=== PATIENT | female | born 1995 | race Caucasian/White ===

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

== ENCOUNTER 2017-03-29 13:39 | Emergency (ER) | payer OTHER ==
[2017-03-29 13:48] VITALS: BP 130/72; PULSE 99; RESP 16; TEMP 97.5
--- NOTE | 2017-03-29 15:08 | ED ---
ENT HPI - General Chief complaint: ENT Stated complaint: ear infection Time Seen by Provider: 03/29/17 14:00 Source: patient, RN notes reviewed Mode of arrival: ambulatory Limitations: no limitations - History of Present Illness Initial comments: This is a 21-year-old female who presents to the emergency department with chief complaint of ear pain. Patient states that she's been experiencing ear pain since February 25, 2017. She was seen by her primary care physician who diagnosed her with an ear infection. She took a full course of amoxicillin that ended approximately 10 days ago. Patient denies any improvement in her symptoms. She then followed up with her primary care physician who told her the infection had resolved and prescribed her a Medrol Dosepak. Patient did not citrus picker her prescription as she was informed that it could cause changes in her mood and she is "borderline bipolar." Patient states that she is having difficulty hearing, describing it as feeling blood rushing in her ears. She denies any pain of the ears themselves, stating she is experiencing neck pain below her ears, but denies mastoid tenderness. Patient also complains of posterior neck pain as well as a sore throat. Patient states that it is not a normal sore throat but that "there is pain in the bone behind my throat." Patient denies any difficulty swallowing, pain with swallowing or difficulty breathing. She denies any systemic symptoms such as fever or chills, abdominal pain, nausea or vomiting, diarrhea or constipation. Patient states that her head feels full with forehead and facial pain. - Related Data Home Medications Medication Instructions Recorded Confirmed Isabloom ( Control) 1 tab PO DAILY 03/29/17 03/29/17 Pediatric Multivitamin No.30 2 tab PO DAILY 03/29/17 03/29/17 [Multivitamin Children's Gummies] Verapamil HCl [Verapamil ER] 120 mg PO DAILY 03/29/17 03/29/17 Vitamin B Complex 1 cap PO DAILY 03/29/17 03/29/17 Allergies Allergy/AdvReac Type Severity Reaction Status Date / Time No Known Allergies Allergy Verified 03/29/17 14:14 Review of Systems ROS Statement: Those systems with pertinent positive or pertinent negative responses have been documented in the HPI. ROS Other: All systems not noted in ROS Statement are negative. 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 HEENT: Head atraumatic, normocephalic. Pupils are equal, round and reactive to light. Extraocular movements intact. Oropharynx moist without erythema or exudate. Bilateral TMs are pearly without effusion. No mastoid tenderness bilaterally. Neck: Supple. Normal ROM. Tenderness on palpation occipital region posterior neck. Tenderness on palpation of superior aspect sternocleidomastoid muscle. No carotid bruits bilaterally. Cardiovascular: Regular rate and rhythm. No murmurs, rubs or gallops. Chest symmetrical. Respiratory: Lungs clear to auscultation bilaterally. No wheezes, rales or rhonchi. Normal respiratory effort with no use of accessory muscles. Musculoskeletal: Normal ROM, no tenderness bilateral upper and lower extremities. Ambulating normally. Skin: [place], warm and dry without rashes or lesions. Neurological: Alert and oriented x3. CN II-XII grossly intact. Speech is fluent and answers are appropriate. No focal neuro deficits. Psychiatric: Normal mood and affect. No overt signs of depression or anxiety noted. Limitations: no limitations Course Vital Signs 03/29/17 13:41 Temperature 97.5 F L Pulse Rate 99 Respiratory 16 Rate Blood Pressure 130/72 O2 Sat by Pulse 98 Oximetry Medical Decision Making - Medical Decision Making This is a 21-year-old female who presents to the emergency department with chief complaint of bilateral ear pain. Patient was recently treated for an inner ear infection with amoxicillin. She was prescribed a Medrol Dosepak by her primary care provider most likely for eustachian tube effusion. On physical examination, patient denies any mastoid tenderness. Bilateral TMs are pearly with out effusion. This case was discussed with attending physician, Dr. Delgado who also evaluated the patient. He recommended follow-up with her primary care provider and referral to ENT for further evaluation and management. Patient is to citrus picker her prescription of Medrol Dosepak and take that. Patient is in agreement with plan and voices understanding. She is in no acute distress at this time. She will be discharged home. All questions were answered. Disposition Clinical Impression: Otalgia of both ears, Tenderness of neck Disposition: HOME SELF-CARE Condition: Poor Instructions: Earache (ED), Acute Neck Pain (ED) Additional Instructions: Please follow-up with your primary care physician to obtain a referral to ENT. Please take medications as prescribed. Please follow up with primary care provider within 1-2 days. Return to emergency department if symptoms should worsen or any concerns arise. Referrals: Quyen Durham DO [Primary Care Provider] - 1-2 days Time of Disposition: 15:22
== END 2017-03-29 15:26 | disposition home or self-care (01) ==
LOC: EC 13:39
DX: H92.03 Otalgia, bilateral (principal); M54.2 Cervicalgia; H91.90 Unspecified hearing loss, unspecified ear; J02.9 Acute pharyngitis, unspecified; Z79.3 Long term (current) use of hormonal contraceptives; Z79.899 Other long term (current) drug therapy; Z86.79 Personal history of other diseases of the circulatory system
CPT/HCPCS: 99282

== ENCOUNTER 2017-11-10 13:16 | Emergency (ER) | payer OTHER ==
[2017-11-10 13:37] VITALS: BP 115/78; PULSE 74; RESP 18; TEMP 98.2
--- NOTE | 2017-11-10 14:39 | XR ---
EXAMINATION TYPE: XR hand complete RT DATE OF EXAM: 11/10/2017 COMPARISON: None HISTORY: Pain from fall TECHNIQUE: Three-view right hand FINDINGS: No acute fractures are evident. Joint spaces are preserved. Soft tissues are normal. Follow-up exam can be 7-10 days from acute trauma for continued pain. IMPRESSION: 1. Normal three-view right hand.
--- NOTE | 2017-11-10 14:39 | ED ---
Upper Extremity HPI - General Chief Complaint: Extremity Injury, Upper Stated Complaint: Wrist injury Time Seen by Provider: 11/10/17 13:48 Source: patient Mode of arrival: ambulatory Limitations: no limitations - History of Present Illness Initial Comments: This is a 22-year-old female with past medical history SVT presents today for chief complaint of right wrist pain status post fall. Patient states that around 12:30 PM this afternoon she slipped on extension cord at home falling to her right wrist. Patient denies hitting her head, loss consciousness, or injury to any other trauma. Patient states that this is mechanical fall and denies any chest pain, shortness breath or dizziness or any other symptoms prior to the fall. Patient is able to move the wrists, has full sensation denies numbness, tingling, loss sensation, muscle weakness or any other symptoms. Patient states that she thinks she just has a wrist sprain. Patient denies any recent fever, chills, shortness of breath, chest pain, back pain, abdominal pain, nausea or vomiting, numbness or tingling, dysuria or hematuria, constipation or diarrhea, headaches or visual changes, or any other complaints. - Related Data Home Medications Medication Instructions Recorded Confirmed Isabloom ( Control) 1 tab PO DAILY 03/29/17 03/29/17 Pediatric Multivitamin No.30 2 tab PO DAILY 03/29/17 03/29/17 [Multivitamin Children's Gummies] Verapamil HCl [Verapamil ER] 120 mg PO DAILY 03/29/17 03/29/17 Vitamin B Complex 1 cap PO DAILY 03/29/17 03/29/17 Allergies Allergy/AdvReac Type Severity Reaction Status Date / Time No Known Allergies Allergy Verified 11/10/17 13:37 Review of Systems ROS Statement: Those systems with pertinent positive or pertinent negative responses have been documented in the HPI. ROS Other: All systems not noted in ROS Statement are negative. Constitutional: Denies: fever, chills ENT: Denies: ear pain, throat pain Respiratory: Denies: cough, dyspnea Cardiovascular: Denies: chest pain, palpitations Endocrine: Denies: fatigue Gastrointestinal: Denies: abdominal pain, nausea, vomiting Genitourinary: Denies: urgency, dysuria, frequency Musculoskeletal: Reports: arthralgia. 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 Eye: Pupils are equal, extra-ocular movements are intact. No nystagmus. There is normal conjunctiva bilaterally. No signs of icterus. Ears, nose, mouth and throat: There are moist mucous membranes and no oral lesions. Cardiovascular: There is a regular rate and rhythm. No murmur, rub or gallop is appreciated. Respiratory: Lungs are clear to auscultation, respirations are non-labored, breath sounds are equal. No wheezes, stridor, rales, or rhonchi. Musculoskeletal: Normal ROM, no tenderness. Strength 5/5. Sensation intact. Pulses equal bilaterally 2+. Neurological: A&O x 3. CN II-XII intact, There are no obvious motor or sensory deficits. Coordination appears grossly intact. Speech is normal. Skin: Skin is warm and dry and no rashes or lesions are noted. Psychiatric: Cooperative, appropriate mood & affect, normal judgment. Limitations: no limitations Course Vital Signs 11/10/17 13:35 Temperature 98.2 F Pulse Rate 74 Respiratory 18 Rate Blood Pressure 115/78 O2 Sat by Pulse 99 Oximetry Medical Decision Making - Medical Decision Making 22yo cc fall with wrist pain concerning for fracture or sprain. MSK exam unremarkable, no soft tissue swellling or deformity. However given hx of trauma xr of hand and right wrist obtained. (-) for fracture. Reviewd by myself and Dr Delgado. no snuff box tenderness. pt was placed in IVORY bandage and given RICE instruction with PCP in 1-2 days. Pt was instructed to use over the counter ibuprofen and tylenol for pain mgmt as needed, pt agreed. Denied pain mgmt during visit. Pt was discharged in stable condition with PCP f/u in 1-2 days. Pt was instructed to return for any worsening symptoms, verbalized understanding. Denied questions. Case discussed with Dr. Delgado who agreed with impression of wrist kimberly and pt d/c in stable condition. Disposition Clinical Impression: Right wrist sprain Disposition: HOME SELF-CARE Condition: Good Instructions: R.I.C.E. Treatment (ED), Wrist Sprain (ED) Additional Instructions: Please use medication as discussed. Please follow-up with family doctor in the next 2 days of symptoms have not improved. If symptoms persist for >1week at same or worse severity please follow-up with orthopedics. Please return to emergency room if the symptoms increase or worsen or for any other concerns. Is patient prescribed a controlled substance at d/c from ED?: No Referrals: Quyen Durham DO [Primary Care Provider] - 1-2 days Arjun Dean DO [Doctor of Osteopathic Medicine] - 11/17/17 Time of Disposition: 14:40
--- NOTE | 2017-11-10 14:41 | XR ---
EXAMINATION TYPE: XR wrist complete RT DATE OF EXAM: 11/10/2017 COMPARISON: None HISTORY: Fall, pain TECHNIQUE: 4 view right wrist FINDINGS: No acute fractures are evident. Soft tissues are normal. If there is pain at the anatomic snuff box, nuclear medicine bone scan could be performed for additio nal evaluation. Follow-up exams can be performed 7-10 days from acute trauma for continued pain. IMPRESSION: 1. Normal 4 view right wrist
== END 2017-11-10 14:56 | disposition home or self-care (01) ==
LOC: EC 13:16
DX: S63.501A Unspecified sprain of right wrist, initial encounter (principal); Z79.3 Long term (current) use of hormonal contraceptives; Z79.899 Other long term (current) drug therapy; Z86.79 Personal history of other diseases of the circulatory system; W01.0XXA Fall on same level from slipping, tripping and stumbling without subsequent striking against object, initial encounter; Y92.009 Unspecified place in unspecified non-institutional (private) residence as the place of occurrence of the external cause
CPT/HCPCS: 99283

== ENCOUNTER 2018-09-11 15:33 | Emergency (ER) | payer OTHER ==
[2018-09-11 15:52] VITALS: RESP 18
--- NOTE | 2018-09-11 17:02 | ED ---
Female Urogenital HPI - General Chief complaint: Urogenital Stated complaint: Female , IUD issue Time Seen by Provider: 09/11/18 16:14 Source: patient, RN notes reviewed, old records reviewed Mode of arrival: ambulatory Limitations: no limitations - History of Present Illness Initial comments: This is a 22-year-old female the ER for evaluation. Patient presents ER for evaluation of severe suprapubic pain. And pelvic pain. Patient does have known IUD. She is sexually active. Patient is not currently actively bleeding. Symptoms started this afternoon got progressively worse although now they're much improved. Patient to call abuse in her to ER for evaluation. Patient denies any active nausea vomiting or fever. No dysuria or problems with bowel movements MD Complaint: pelvic pain, other (Patient does have IUD placed) -: minutes(s) Location: labia, perineum, suprapubic Severity: moderate Severity scale (1-10): 7 Quality: sharp Consistency: constant Improves with: none Worsens with: urination Patient : No Associated Symptoms: denies other symptoms - Related Data Home Medications Medication Instructions Recorded Confirmed Multivit with Calcium,Iron,Min 1 tab PO DAILY 09/11/18 09/11/18 [Women's Multivitamin] Allergies Allergy/AdvReac Type Severity Reaction Status Date / Time No Known Allergies Allergy Verified 09/11/18 16:40 Review of Systems ROS Statement: Those systems with pertinent positive or pertinent negative responses have been documented in the HPI. ROS Other: All systems not noted in ROS Statement are negative. 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 Absent: scleral icterus, conjunctival injection, periorbital swelling ENT exam: Present: normal exam, mucous membranes moist Neck exam: Present: normal inspection. Absent: tenderness, meningismus, lymphadenopathy Respiratory exam: Present: normal lung sounds bilaterally. Absent: respiratory distress, wheezes, rales, rhonchi, stridor Cardiovascular Exam: Present: regular rate, normal rhythm, normal heart sounds. Absent: systolic murmur, diastolic murmur, rubs, gallop, clicks GI/Abdominal exam: Present: soft, normal bowel sounds. Absent: distended, tenderness, guarding, rebound, rigid Extremities exam: Present: normal inspection, full ROM, normal capillary refill. Absent: tenderness, pedal edema, joint swelling, calf tenderness Back exam: Present: normal inspection Neurological exam: Present: alert, oriented X3, CN II-XII intact Psychiatric exam: Present: normal affect, normal mood Skin exam: Present: warm, dry, intact, normal color. Absent: rash Course Vital Signs 09/11/18 15:49 Temperature 98.2 F Pulse Rate 85 Respiratory 18 Rate Blood Pressure 107/77 O2 Sat by Pulse 96 Oximetry - Reevaluation(s) Reevaluation #1: 09/11/18 17:41 Medical record is reviewed Reevaluation #2: 09/11/18 17:41 Patient has improved pain currently, remains feeling better since arrival in emergency room Medical Decision Making - Medical Decision Making 22 female the ER for evaluation of pelvic pain. Also is negative for significant acute abnormality. Urine is negative and patient can be discharged home - Lab Data Lab Results 09/11/18 Range/Units 16:46 Urine Color Yellow Urine Appearance Cloudy H (Clear) Urine pH 6.5 (5.0-8.0) Ur Specific [place] 1.022 (1.001-1.035) Urine Protein Trace H (Negative) Urine Glucose (UA) Negative (Negative) Urine Ketones Negative (Negative) Urine Blood Negative (Negative) Urine Nitrite Negative (Negative) Urine Bilirubin Negative (Negative) Urine Urobilinogen <2.0 (<2.0) mg/dL Ur Leukocyte Esterase Trace H (Negative) Urine RBC 1 (0-5) /hpf Urine WBC 9 H (0-5) /hpf Ur Squamous Epith Cells 7 H (0-4) /hpf Amorphous Sediment Rare H (None) /hpf Urine Bacteria Rare H (None) /hpf Urine Mucus Few H (None) /hpf - Radiology Data Radiology results: report reviewed (Ultrasound pelvic is negative for acute disease), image reviewed Disposition Clinical Impression: Suprapubic pain, Pelvic pain, Ovarian cyst Disposition: HOME SELF-CARE Condition: Good Instructions (If sedation given, give patient instructions): Pelvic Pain in Women (ED), Ovarian Cyst (ED) Is patient prescribed a controlled substance at d/c from ED?: No Referrals: Quyen Durham DO [Primary Care Provider] - 1-2 days
[2018-09-11 17:15] LABS: Amorphous Sediment,Urine Rare /hpf; Appearance,Urine Cloudy (Clear); Bacteria,Urine Rare /hpf; Bilirubin,Urine Negative (Negative); Blood,Urine Negative (Negative); Color,Urine Yellow; Glucose,Urine (UA) Negative (Negative); Ketones,Urine Negative (Negative); Leukocyte Esterase,Urine Trace (Negative); Mucus,Urine Few /hpf; Nitrite,Urine Negative (Negative); PH, Urine 6.5 (5.0-8.0); Protein,Urine Trace (Negative); RBC,Urine 1 /hpf (0-5); Specific Gravity,Urine 1.022 (1.001-1.035); Squamous Epithelial Cell,Urine 7 /hpf (0-4); Urobilinogen,Urine <2.0 mg/dL (<2.0); WBC,Urine 9 /hpf (0-5)
--- NOTE | 2018-09-11 17:52 | US ---
EXAMINATION TYPE: US transvaginal DATE OF EXAM: 09/11/2018 COMPARISON: NONE CLINICAL HISTORY: Pain. Pelvic pain x 50 minutes. LMP unknown. IUD placed May 2018. . TECHNIQUE: Transvaginal (TV) and Transabdominal (TA) . Date of LMP: Unknown EXAM MEASUREMENTS: Uterus: 7.6 x 4.7 x 3.7 cm Endometrial Stripe: Measures 1.8 cm with fluid. Anterior: 0.28 cm. Posterior: 0.43 cm Right Ovary: 2.7 x 1.9 x 1.7 cm cm Left Ovary: 2.9 x 1.5 x 1.2 cm 1. Uterus: Anteverted Complex fluid seen within endometrium measurin.6 x 1.8 x 1.7 cm. 2. Endometrium: Complex fluid seen within, as mentioned above. IUD not well seen, but appears to be toward the left side of the uterus. 3. Right Ovary: Follicles seen, appears posterior to uterus at increased depth 4. Left Ovary: Follicles seen, largest anechoic area seen measures: 0.9 x 0.7 x 0.6 cm. Spectral, color and waveform doppler imaging shows good arterial and venous flow within the ovaries ; there is no evidence for ovarian torsion. 5. Bilateral Adnexa: appears wnl 6. Posterior cul-de-sac: appears wnl IMPRESSION: There is complex cystic enlargement of the endometrial cavity. IUD partly localized. No f ree fluid. No adnexal mass. No evidence of ovarian torsion.
[2018-09-11 19:02] VITALS: BP 135/89; PULSE 82; TEMP 98
[2018-09-12 16:27] LABS: C. trachomatis,PCR Negative (Neg,Equiv); Chlamydia trachomatis Source Urine
[2018-09-12 16:32] LABS: N. gonorrhoeae,PCR Negative (Neg,Equiv); Neisseria Source Urine
== END 2018-09-11 18:50 | disposition home or self-care (01) ==
LOC: EC 15:33
DX: N83.202 Unspecified ovarian cyst, left side (principal)
CPT/HCPCS: 76830; 81001; 87086; 87491; 87591; 93975; 99284

== ENCOUNTER 2023-01-11 15:18 | Emergency (ER) | payer OTHER ==
[2023-01-11 16:03] VITALS: BP 126/79; TEMP 97.7
--- NOTE | 2023-01-11 16:45 | ED ---
General Adult HPI - General Chief complaint: Nausea/Vomiting/Diarrhea Stated complaint: 9 weeks prg/vomiting Time Seen by Provider: 01/11/23 16:36 Source: patient, RN notes reviewed Mode of arrival: ambulatory Limitations: no limitations - History of Present Illness Initial comments: 27-year-old female presents emergency Department with chief complaint of nausea and vomiting in . She states that she is around 9 weeks . Last menstrual period 9523. She has not been able to get into an OB yet but has been trying. She reports significant daily vomiting since 6 weeks of . She has been taking B6 in attempt to improve vomiting which has not helped. - Related Data Home Medications Medication Instructions Recorded Confirmed Multivit with Calcium,Iron,Min 1 tab PO DAILY 09/11/18 09/11/18 [Women's Multivitamin] Previous Rx's Medication Instructions Recorded Cephalexin [Keflex] 500 mg PO BID #14 cap 01/11/23 Ondansetron Odt [Zofran Odt] 4 mg PO Q8HR PRN #12 tab 01/11/23 Allergies Allergy/AdvReac Type Severity Reaction Status Date / Time No Known Allergies Allergy Verified 01/11/23 15:48 Review of Systems ROS Statement: Those systems with pertinent positive or pertinent negative responses have been documented in the HPI. ROS Other: All systems not noted in ROS Statement are negative. 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 Absent: scleral icterus, conjunctival injection, periorbital swelling ENT exam: Present: normal exam, mucous membranes moist Neck exam: Present: normal inspection. Absent: tenderness, meningismus, lymphadenopathy Respiratory exam: Present: normal lung sounds bilaterally. Absent: respiratory distress, wheezes, rales, rhonchi, stridor Cardiovascular Exam: Present: regular rate, normal rhythm, normal heart sounds. Absent: systolic murmur, diastolic murmur, rubs, gallop, clicks GI/Abdominal exam: Present: soft, normal bowel sounds. Absent: distended, tenderness, guarding, rebound, rigid Extremities exam: Present: normal inspection, full ROM, normal capillary refill. Absent: tenderness, pedal edema, joint swelling, calf tenderness Neurological exam: Present: alert, oriented X3 Psychiatric exam: Present: normal affect, normal mood Skin exam: Present: warm, dry, intact, normal color. Absent: rash Course Vital Signs 01/11/23 01/11/23 15:45 19:44 Temperature 97.7 F Pulse Rate 84 75 Respiratory 18 17 Rate Blood Pressure 126/79 O2 Sat by Pulse 100 100 Oximetry Medical Decision Making - Medical Decision Making Was pt. sent in by a medical professional or institution (SHERLY Reynolds, PERSONAL FINANCE INSTRUCTOR, urgent care, hospital, or intermediate...) When possible be specific @ -No Did you speak to anyone other than the patient for history (EMS, parent, family, police, friend...)? What history was obtained from this source @ -No Did you review nursing and triage notes (agree or disagree)? Why? @ -I reviewed and agree with nursing and triage notes Were old charts reviewed (outside hosp., previous admission, EMS record, old EKG, old radiological studies, urgent care reports/EKG's, intermediate records)? Report findings @ -No old charts were reviewed Differential Diagnosis (chest pain, altered mental status, abdominal pain women, abdominal pain men, vaginal bleeding, weakness, fever, dyspnea, syncope, headache, dizziness, GI bleed, back pain, seizure, CVA, palpatations, mental health, musculoskeletal)? @ -Differential Vaginal Bleeding: Spontaneous , threatened , molar , ectopic , bloody show, incompetent cervix, abruptioplacenta, placenta previa, uterine rupture, dysfunctional uterine bleeding, hemorrhage, uterine fi broids, this is not meant to be an all-inclusive list. EKG interpreted by me (3pts min.). @ -none X-rays interpreted by me (1pt min.). @ -None done CT interpreted by me (1pt min.). @ -None done U/S interpreted by me (1pt. min.). @ -pelvic US shows single live intrauterine What testing was considered but not performed or refused? (CT, X-rays, U/S, labs)? Why? @ -None What meds were considered but not given or refused? Why? @ -None Did you discuss the management of the patient with other professionals (professionals i.e. , PA, PERSONAL FINANCE INSTRUCTOR, lab, RT, psych nurse, social organization professor, urology physician assistant, teacher, tactical deception plans officer, hospice case manager)? Give summary @ -No Was smoking cessation discussed for >3mins.? @ -No Was critical care preformed (if so, how long)? @ -No Were there social determinants of health that impacted care today? How? (Homelessness, low income, unemployed, alcoholism, drug addiction, transportation, low edu. Level, literacy, decrease access to med. care, correction, rehab)? @ -No Was there de-escalation of care discussed even if they declined (Discuss DNR or withdrawal of care, Hospice)? DNR status @ -No What co-morbidities impacted this encounter? (DM, HTN, Smoking, COPD, CAD, Cancer, CVA, ARF, Chemo, Hep., AIDS, mental health diagnosis, sleep apnea, morbid obesity)? @ -None Was patient admitted / discharged? Hospital course, mention meds given and route, prescriptions, significant lab abnormalities, going to OR and other pertinent info. @ -Discharged. Patient presented to emergency department chief complaint of nausea, vomiting in . Patient given Zofran, Benadryl, 2 L normal saline. Laboratory studies obtainedCBC shows a CBC 7.9, hemoglobin 13.1, hematocrit 39.6; CMP shows sodium 136, potassium 4.2, creatinine 0.46, quantitative hCG 830500; UA shows cloudy urine, moderate leukocyte Estrace, 6 WBCs. Patient will be started on antibiotic treatment for asymptomatic bact eriuria in . Ultrasound obtained shows a single live intrauterine . Discussed findings with patient. Patient is feeling better after treatment. Patient advised to utilize Unisom and B6 for nausea control. Prescription sent patient's pharmacy for Keflex and Zofran. Patient will follow up with QC ANALYST. Patient stable at time of discharge. Case discussed with Dr. Crain Undiagnosed new problem with uncertain prognosis? @ -No Drug Therapy requiring intensive monitoring for toxicity (Heparin, Nitro, Insulin, Cardizem)? @ -No Were any procedures done? @ -No Diagnosis/symptom? @ -nausea and vomiting in Acute, or Chronic, or Acute on Chronic? @ -acute Uncomplicated (without systemic symptoms) or Complicated (systemic symptoms)? @ -uncomplicated Side effects of treatment? @ -No Exacerbation, Progression, or Severe Exacerbation? @ -No Poses a threat to life or bodily function? How? (Chest pain, USA, MD, pneumonia, PE, COPD, DKA, ARF, appy, cholecystitis, CVA, Diverticulitis, Homicidal, Suicidal, threat to staff... and all critical care pts) @ -No - Lab Data Result diagrams: 01/11/23 17:09 01/11/23 17:09 Lab Results 01/11/23 01/11/23 01/11/23 Range/Units 17:09 17:09 17:09 WBC 7.9 (3.8-10.6) k/uL RBC 4.49 (3.80-5.40) m/uL Hgb 13.1 (11.4-16.0) gm/dL Hct 39.6 (34.0-46.0) % MCV 88.1 (80.0-100.0) fL MCH 29.2 (25.0-35.0) pg MCHC 33.2 (31.0-37.0) g/dL RDW 13.2 (11.5-15.5) % Plt Count 307 (150-450) k/uL MPV 8.2 Neutrophils % 65 % Lymphocytes % 26 % Monocytes % 6 % Eosinophils % 1 % Basophils % 1 % Neutrophils # 5.1 (1.3-7.7) k/uL Lymphocytes # 2.0 (1.0-4.8) k/uL Monocytes # 0.5 (0-1.0) k/uL Eosinophils # 0.1 (0-0.7) k/uL Basophils # 0.0 (0-0.2) k/uL Sodium 136 L (137-145) mmol/L Potassium 4.2 (3.5-5.1) mmol/L Chloride 104 (98-107) mmol/L Carbon Dioxide 22 (22-30) mmol/L Anion Gap 10 mmol/L BUN 7 (7-17) mg/dL Creatinine 0.46 L (0.52-1.04) mg/dL Est GFR (CKD-EPI)AfAm >90 (>60 ml/min/1.73 sqM) Est GFR (CKD-EPI)NonAf >90 (>60 ml/min/1.73 sqM) Glucose 85 (74-99) mg/dL Calcium 9.1 (8.4-10.2) mg/dL Total Bilirubin 0.3 (0.2-1.3) mg/dL AST 26 (14-36) U/L ALT 30 (4-34) U/L Alkaline Phosphatase 57 (38-126) U/L Total Protein 6.7 (6.3-8.2) g/dL Albumin 3.8 (3.5-5.0) g/dL Lipase 96 (23-300) U/L HCG, Quant 137722.0 mIU/mL Urine Color Colorless Urine Appearance Cloudy H (Clear) Urine pH 6.0 (5.0-8.0) Ur Specific [place] 1.011 (1.001-1.035) Urine Protein Negative (Negative) Urine Glucose (UA) Negative (Negative) Urine Ketones Negative (Negative) Urine Blood Negative (Negative) Urine Nitrite Negative (Negative) Urine Bilirubin Negative (Negative) Urine Urobilinogen <2.0 (<2.0) mg/dL Ur Leukocyte Esterase Moderate H (Negative) Urine RBC 1 (0-5) /hpf Urine WBC 6 H (0-5) /hpf Ur Squamous Epith Cells 2 (0-4) /hpf Urine Bacteria Moderate H (None) /hpf Urine Mucus Occasional H (None) /hpf Blood Type Blood Type Recheck Bld Type Recheck Status 01/11/23 Range/Units 17:24 WBC (3.8-10.6) k/uL RBC (3.80-5.40) m/uL Hgb (11.4-16.0) gm/dL Hct (34.0-46.0) % MCV (80.0-100.0) fL MCH (25.0-35.0) pg MCHC (31.0-37.0) g/dL RDW (11.5-15.5) % Plt Count (150-450) k/uL MPV Neutrophils % % Lymphocytes % % Monocytes % % Eosinophils % % Basophils % % Neutrophils # (1.3-7.7) k/uL Lymphocytes # (1.0-4.8) k/uL Monocytes # (0-1.0) k/uL Eosinophils # (0-0.7) k/uL Basophils # (0-0.2) k/uL Sodium (137-145) mmol/L Potassium (3.5-5.1) mmol/L Chloride (98-107) mmol/L Carbon Dioxide (22-30) mmol/L Anion Gap mmol/L BUN (7-17) mg/dL Creatinine (0.52-1.04) mg/dL Est GFR (CKD-EPI)AfAm (>60 ml/min/1.73 sqM) Est GFR (CKD-EPI)NonAf (>60 ml/min/1.73 sqM) Glucose (74-99) mg/dL Calcium (8.4-10.2) mg/dL Total Bilirubin (0.2-1.3) mg/dL AST (14-36) U/L ALT (4-34) U/L Alkaline Phosphatase (38-126) U/L Total Protein (6.3-8.2) g/dL Albumin (3.5-5.0) g/dL Lipase (23-300) U/L HCG, Quant mIU/mL Urine Color Urine Appearance (Clear) Urine pH (5.0-8.0) Ur Specific [place] (1.001-1.035) Urine Protein (Negative) Urine Glucose (UA) (Negative) Urine Ketones (Negative) Urine Blood (Negative) Urine Nitrite (Negative) Urine Bilirubin (Negative) Urine Urobilinogen (<2.0) mg/dL Ur Leukocyte Esterase (Negative) Urine RBC (0-5) /hpf Urine WBC (0-5) /hpf Ur Squamous Epith Cells (0-4) /hpf Urine Bacteria (None) /hpf Urine Mucus (None) /hpf Blood Type B Positive Blood Type Recheck No Previous Record Bld Type Recheck Status [facility] ONLY Disposition Clinical Impression: UTI (urinary tract infection), Nausea and vomiting during Disposition: HOME SELF-CARE Condition: Stable Instructions (If sedation given, give patient instructions): Nausea and Vomiting in (ED) Additional Instructions: Please follow up with OB. The combination of Unisom and B6 may be beneficial for nausea prevention in . supervisor correspondence section antibiotic from pharmacy and take to completion. Prescriptions: Cephalexin [Keflex] 500 mg PO BID #14 cap Ondansetron Odt [Zofran Odt] 4 mg PO Q8HR PRN #12 tab PRN Reason: Nausea Is patient prescribed a controlled substance at d/c from ED?: No Referrals: Quyen Durham DO [Primary Care Provider] - 1-2 days Shahla Bernabe DO [Doctor of Osteopathic Medicine] - 1-2 days
[2023-01-11] MEDS ORDERED: SODIUM CHLORIDE 0.9% 2,000 ML IV ONE (16:58)
[2023-01-11] MEDS ORDERED: ONDANSETRON 4 MG/2 ML VIAL IVP STA (16:58)
[2023-01-11] MEDS ORDERED: diphenhydrAMINE 50 MG/ML 1 ML VIAL IVP STA (17:01)
[2023-01-11 17:37] LABS: Basophils % (A) 1 %; Eosinophils # (A) 0.1 k/uL (0-0.7); Eosinophils % (A) 1 %; HCT 39.6 % (34.0-46.0); HGB 13.1 gm/dL (11.4-16.0); Lymphocytes % (A) 26 %; MCH 29.2 pg (25.0-35.0); MCHC 33.2 g/dL (31.0-37.0); MCV 88.1 fL (80.0-100.0); Mean Platelet Volume 8.2; Monocytes # (A) 0.5 k/uL (0-1.0); Monocytes % (A) 6 %; Neutrophils # (A) 5.1 k/uL (1.3-7.7); Neutrophils % (A) 65 %; Platelet Count 307 k/uL (150-450); RBC 4.49 m/uL (3.80-5.40); RDW 13.2 % (11.5-15.5); WBC 7.9 k/uL (3.8-10.6)
[2023-01-11 17:49] LABS: ALT 30 U/L (4-34); AST 26 U/L (14-36); African American GFR (CKD) >90 (>60 ml/min/1.73 sqM); Albumin 3.8 g/dL (3.5-5.0); Alkaline Phosphatase 57 U/L (38-126); Anion Gap 10 mmol/L; Blood Urea Nitrogen 7 mg/dL (7-17); Calcium 9.1 mg/dL (8.4-10.2); Carbon Dioxide 22 mmol/L (22-30); Chloride 104 mmol/L (98-107); Glucose 85 mg/dL (74-99); Lipase 96 U/L (23-300); Non-African American GFR(CKD) >90 (>60 ml/min/1.73 sqM); Potassium 4.2 mmol/L (3.5-5.1); Sodium 136 mmol/L (137-145); Total Bilirubin 0.3 mg/dL (0.2-1.3); Total Protein 6.7 g/dL (6.3-8.2)
[2023-01-11 18:04] LABS: Appearance,Urine Cloudy (Clear); Bacteria,Urine Moderate /hpf; Bilirubin,Urine Negative (Negative); Blood,Urine Negative (Negative); Color,Urine Colorless; Glucose,Urine (UA) Negative (Negative); Ketones,Urine Negative (Negative); Leukocyte Esterase,Urine Moderate (Negative); Mucus,Urine Occasional /hpf; Nitrite,Urine Negative (Negative); Protein,Urine Negative (Negative); RBC,Urine 1 /hpf (0-5); Specific Gravity,Urine 1.011 (1.001-1.035); Squamous Epithelial Cell,Urine 2 /hpf (0-4); Urobilinogen,Urine <2.0 mg/dL (<2.0); WBC,Urine 6 /hpf (0-5)
--- NOTE | 2023-01-11 18:35 | US ---
EXAMINATION TYPE: Transabdominal DATE OF EXAM: 01/11/2023 6:15 PM COMPARISON: NONE CLINICAL INDICATION: Female, 27 years old with history of pain, 9wk; Mild cramping today. N/V x 3 wee ks. No bleeding EXAM PERFORMED: Transabdominal (TA) EXAM MEASUREMENTS: GESTATIONAL AGE / DATING Physician Established: Not yet established Dates by LMP: 11/07/22 (9 weeks/2 days) EDC: 08/14/23 Dates by First Scan: No previous this is first scan Dates by Current Scan for: (9 weeks/1 days) EDC: 08/15/23 MATERNAL ANATOMY Uterus: 11.7 x 8.2 x 5.8 cm Right Ovary: 2.4 x 2.3 x 1.4 cm Left Ovary: 3.1 x 1.6 x 2.5 cm Post CDS / Adnexa: wnl Presence of free fluid: No Presence of corpus luteal cyst: Not seen Presence of subchorionic bleed: No GESTATION / SURVEY CRL: 2.48cm (9 weeks/1 days) MSD: Not measured, appears wnl Yolk Sac (normal less than 6mm): 3.4mm Heart Rate: 175 bpm Rhythm: Normal IUP: Viable IUP Date of LMP: 11/07/22 Beta HcG (if available): pending IMPRESSION: Single live IUP measuring 9 weeks 1 day.
[2023-01-11] MEDS ORDERED: CEPHALEXIN 500 MG CAP PO STA (19:25)
[2023-01-11 20:02] VITALS: PULSE 75; RESP 17
== END 2023-01-11 19:45 | disposition home or self-care (01) ==
LOC: EC 15:18
DX: O23.41 Unspecified infection of urinary tract in pregnancy, first trimester (principal); N39.0 Urinary tract infection, site not specified; Z3A.09 9 weeks gestation of pregnancy
CPT/HCPCS: 36415; 86900; 86901; 80053; 83690; 85025; 81001; 84702; 76801; 99284; 96374; 96375; 96361 ×2; J1200; J2405

== ENCOUNTER 2023-04-22 18:29 | Emergency (ER) | payer OTHER ==
[2023-04-22 18:41] VITALS: PULSE 76; RESP 18
--- NOTE | 2023-04-22 20:00 | XR ---
EXAMINATION TYPE: XR chest 2V DATE OF EXAM: 04/22/2023 7:49 PM CLINICAL INDICATION:Female, 27 years old with history of Cough/pain; [facility] COMPARISON: None TECHNIQUE: XR chest 2V Frontal and lateral views of the chest. FINDINGS: Lungs/Pleura: There is no evidence of pleural effusion, focal consolidation, or pneumothorax. Pulmonary vascularity: Unremarkable. Heart/mediastinum: Cardiomediastinal silhouette is unremarkable. Musculoskeletal: No acute osseous pathology. Other findings: None IMPRESSION: No acute cardiopulmonary disease/process.
[2023-04-22 20:10] LABS: Basophils % (A) 0 %; Eosinophils # (A) 0.1 k/uL (0-0.7); Eosinophils % (A) 1 %; HGB 12.7 gm/dL (11.4-16.0); Lymphocytes # (A) 1.8 k/uL (1.0-4.8); Lymphocytes % (A) 19 %; MCH 31.1 pg (25.0-35.0); MCHC 35.3 g/dL (31.0-37.0); Mean Platelet Volume 8.2; Monocytes # (A) 0.5 k/uL (0-1.0); Monocytes % (A) 5 %; Neutrophils % (A) 74 %; Platelet Count 327 k/uL (150-450); RBC 4.08 m/uL (3.80-5.40); RDW 13.6 % (11.5-15.5); WBC 9.5 k/uL (3.8-10.6)
[2023-04-22 20:18] LABS: INR 0.9 (<1.2); Partial Thromboplastin Time 23.8 sec (22.0-30.0); Prothrombin Time 10.1 sec (10.0-12.5)
[2023-04-22 20:40] LABS: ALT 15 U/L (4-34); AST 24 U/L (14-36); African American GFR (CKD) >90 (>60 ml/min/1.73 sqM); Albumin 3.9 g/dL (3.5-5.0); Alkaline Phosphatase 91 U/L (38-126); Anion Gap 6 mmol/L; Blood Urea Nitrogen 4 mg/dL (7-17); Calcium 9.4 mg/dL (8.4-10.2); Carbon Dioxide 23 mmol/L (22-30); Chloride 108 mmol/L (98-107); Glucose 75 mg/dL (74-99); Lipase 70 U/L (23-300); Magnesium 1.9 mg/dL (1.6-2.3); Non-African American GFR(CKD) >90 (>60 ml/min/1.73 sqM); Potassium 4.4 mmol/L (3.5-5.1); Sodium 137 mmol/L (137-145); Total Bilirubin 0.3 mg/dL (0.2-1.3); Total Protein 6.7 g/dL (6.3-8.2)
--- NOTE | 2023-04-22 20:55 | ED ---
Chest Pain HPI - General Chief Complaint: Chest Pain Stated Complaint: chest pain 23 weeks Time Seen by Provider: 04/22/23 18:40 Source: patient Mode of arrival: ambulatory Limitations: no limitations - History of Present Illness Initial Comments: 27-year-old female who is 23 weeks presents emergency department with reported epigastric pain. States that it started while she was at home. She describes it as a pressure/burning sensation in her chest. It made her feel short of breath. She took some Tums without any improvement in her symptoms. States the pain was so severe that it brought her to the floor. This is when her significant other felt as if she needed to come to the emergency department. Upon hospital arrival she states the pain is completely gone at this time. She denies any fevers, chills or cough. No history of cardiac disease. She denies any abdominal pain. No vaginal bleeding or discharge. This has been uncomplicated for her. She does have a history of SVT however has not had issues in several years. She does not take any medications. She was wearing her smart watch when the episode happened. She states that her heart rate was in the 90s. No other alleviating, precipitating modifying factors - Related Data Home Medications Medication Instructions Recorded Confirmed Multivit with Calcium,Iron,Min 1 tab PO DAILY 09/11/18 09/11/18 [Women's Multivitamin] Previous Rx's Medication Instructions Recorded Cephalexin [Keflex] 500 mg PO BID #14 cap 01/11/23 Ondansetron Odt [Zofran Odt] 4 mg PO Q8HR PRN #12 tab 01/11/23 Allergies Allergy/AdvReac Type Severity Reaction Status Date / Time No Known Allergies Allergy Verified 04/22/23 18:38 Review of Systems ROS Statement: Those systems with pertinent positive or pertinent negative responses have been documented in the HPI. ROS Other: All systems not noted in ROS Statement are negative. 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 Absent: scleral icterus, conjunctival injection, periorbital swelling ENT exam: Present: normal exam, mucous membranes moist Neck exam: Present: normal inspection. Absent: tenderness, meningismus, lymphadenopathy Respiratory exam: Present: normal lung sounds bilaterally. Absent: respiratory distress, wheezes, rales, rhonchi, stridor Cardiovascular Exam: Present: regular rate, normal rhythm, normal heart sounds. Absent: systolic murmur, diastolic murmur, rubs, gallop, clicks GI/Abdominal exam: Present: soft, normal bowel sounds. Absent: distended, tenderness, guarding, rebound, rigid Extremities exam: Present: normal inspection, full ROM, normal capillary refill. Absent: tenderness, pedal edema, joint swelling, calf tenderness Back exam: Present: normal inspection Neurological exam: Present: alert, oriented X3, CN II-XII intact Psychiatric exam: Present: normal affect, normal mood Skin exam: Present: warm, dry, intact, normal color. Absent: rash Course Vital Signs 04/22/23 04/22/23 18:36 21:42 Temperature 98.4 F 98.2 F Pulse Rate 76 76 Respiratory 18 18 Rate Blood Pressure 116/80 120/72 O2 Sat by Pulse 98 97 Oximetry Chest Pain MDM - MDM Was pt. sent in by a medical professional or institution (Dr. PA, DEBURRING TECHNICIAN, urgent care, hospital, or alf...) When possible be specific @ -No Did you speak to anyone other than the patient for history (EMS, parent, family, police, friend...)? What history was obtained from this source @ -No Did you review nursing and triage notes (agree or disagree)? Why? @ -I reviewed and agree with nursing and triage notes Were old charts reviewed (outside hosp., previous admission, EMS record, old EKG, old radiological studies, urgent care reports/EKG's, alf records)? Report findings @ -No old charts were reviewed Differential Diagnosis (chest pain, altered mental status, abdominal pain women, abdominal pain men, vaginal bleeding, weakness, fever, dyspnea, syncope, headache, dizziness, GI bleed, back pain, seizure, CVA, palpatations, mental health, musculoskeletal)? @ -Differential Chest Pain: Stable Angina, Unstable Angina, STEMI, NSTEMI Aortic Dissection, Pneumothorax, Musculoskeletal, Esophageal Spasm GERD, Cholecystitis, Pancreatitis, Zoster, this is not meant to be an all-inclusive list. EKG interpreted by me (3pts min.). @ -Yes and demonstrates sinus rhythm with a rate of 77. [place] interval 147. QRS 89. QTc of 417. No acute ST segment elevations or depressions X-rays interpreted by me (1pt min.). @ -Yes and demonstrates no acute process CT interpreted by me (1pt min.). @ -None done U/S interpreted by me (1pt. min.). @ -Bedside ultrasound was performed which demonstrates intrauterine , heart tones of 141. Positive movement What testing was considered but not performed or refused? (CT, X-rays, U/S, labs)? Why? @ -None What meds were considered but not given or refused? Why? @ -None Did you discuss the management of the patient with other professionals (professionals i.e. , PA, DEBURRING TECHNICIAN, lab, RT, psych nurse, clinical social worker, manager copy, teacher, loan workout officer, assistant case manager)? Give summary @ -No Was smoking cessation discussed for >3mins.? @ -No Was critical care preformed (if so, how long)? @ -No Were there social determinants of health that impacted care today? How? (Homelessness, low income, unemployed, alcoholism, drug addiction, transportation, low edu. Level, literacy, decrease access to med. care, nursing home, rehab)? @ -No Was there de-escalation of care discussed even if they declined (Discuss DNR or withdrawal of care, Hospice)? DNR status @ -No What co-morbidities impacted this encounter? (DM, HTN, Smoking, COPD, CAD, Cancer, CVA, ARF, Chemo, Hep., AIDS, mental health diagnosis, sleep apnea, morbid obesity)? @ -SVT Was patient admitted / discharged? Hospital course, mention meds given and route, prescriptions, significant lab abnormalities, going to OR and other pertinent info. @ -Discharge. Upon arrival patient placed into room 17. Thorough history and physical exam was performed. Patient is asymptomatic at this time. Twelve-lead EKG is obtained. Patient remains on continuous pulse ox and cardiac monitoring. Laboratory studies are conducted. I did discuss imaging with the patient and she was agreeable to x-ray knowing the risks of radiation exposure. Results of the testing are discussed with the patient. She has had no return of her pain. At this time she will be discharged home. Instructed to follow-up with her STANDARDS ANALYST in regards to her symptoms return for any new or worsening symptoms. Patient was agreeable to the plan she was discharged in stable condition Undiagnosed new problem with uncertain prognosis? @ -Yes Drug Therapy requiring intensive monitoring for toxicity (Heparin, Nitro, Insulin, Cardizem)? @ -No Were any procedures done? @ -No Diagnosis/symptom? @ -Acute epigastric pain, second trimester Acute, or Chronic, or Acute on Chronic? @ -Acute Uncomplicated (without systemic symptoms) or Complicated (systemic symptoms)? @ -Complicated Side effects of treatment? @ -No Exacerbation, Progression, or Severe Exacerbation? @ -No Poses a threat to life or bodily function? How? (Chest pain, USA, PR, pneumonia, PE, COPD, DKA, ARF, appy, cholecystitis, CVA, Diverticulitis, Homicidal, Suicidal, threat to staff... and all critical care pts) @ -No Disposition Clinical Impression: Chest pain, Second trimester Disposition: HOME SELF-CARE Condition: Stable Instructions (If sedation given, give patient instructions): Chest Pain (ED) Additional Instructions: Please follow-up with your primary care doctor and return for any new or worsening symptoms Is patient prescribed a controlled substance at d/c from ED?: No Referrals: Quyen Durham DO [Primary Care Provider] - 1-2 days Time of Disposition: 21:04
[2023-04-22 21:00] LABS: Appearance,Urine Cloudy (Clear); Bacteria,Urine Few /hpf; Bilirubin,Urine Negative (Negative); Blood,Urine Negative (Negative); Color,Urine Colorless; Glucose,Urine (UA) Negative (Negative); Ketones,Urine Negative (Negative); Leukocyte Esterase,Urine Negative (Negative); Nitrite,Urine Negative (Negative); Protein,Urine Negative (Negative); RBC,Urine <1 /hpf (0-5); Specific Gravity,Urine 1.006 (1.001-1.035); Squamous Epithelial Cell,Urine 2 /hpf (0-4); Urobilinogen,Urine <2.0 mg/dL (<2.0); WBC,Urine 2 /hpf (0-5)
[2023-04-22 22:14] VITALS: BP 120/72; TEMP 98.2
== END 2023-04-22 21:42 | disposition home or self-care (01) ==
LOC: EC 18:29
DX: O26.892 Other specified pregnancy related conditions, second trimester (principal); R07.89 Other chest pain; R10.13 Epigastric pain; Z3A.23 23 weeks gestation of pregnancy
CPT/HCPCS: 36415; 71046; 80053; 81001; 83690; 83735; 84484; 85025; 85610; 85730; 93005; 99285

== ENCOUNTER 2024-02-15 21:06 | Emergency (ER) | payer OTHER ==
--- NOTE | 2024-02-15 21:38 | ED ---
General Adult HPI - General Chief complaint: Abdominal Pain Stated complaint: Chest/Back Pain Time Seen by Provider: 02/15/24 21:16 Source: patient, RN notes reviewed, old records reviewed Mode of arrival: ambulatory Limitations: no limitations - History of Present Illness Initial comments: Patient is a 28-year-old female with no significant past medical history presents emergency department complaining of abdominal pain, chest pain, nausea and vomiting, diarrhea. States symptoms started today. States she is primarily having right upper quadrant and epigastric abdominal discomfort. Also endorses shoulder discomfort. States she has some lower sternal chest pain as well. Denies any shortness of breath. Has intermittent nonbilious nonbloody emesis. Endorses nonbloody diarrhea. Has no urinary complaints. States she is not currently . She is currently breast-feeding. Denies any significant past medical history. Feels this may be her gallbladder. Has no other acute complaints at this time. Does state that the pain does radiate as stated from her abdomen to her shoulders but also to her mid back. No history of abdominal surgeries in the past.Does not drink alcohol. Denies drug use.Patient states she has experienced the symptoms in the past. - Related Data Home Medications Medication Instructions Recorded Confirmed Aspirin 81 mg PO DAILY 06/17/23 06/17/23 Vit No.179/Iron/Folic 1 tab PO DAILY 06/17/23 06/17/23 [ Tablet] Allergies Allergy/AdvReac Type Severity Reaction Status Date / Time No Known Allergies Allergy Verified 02/15/24 21:11 Review of Systems ROS Statement: Those systems with pertinent positive or pertinent negative responses have been documented in the HPI. Review of Systems: CONST: Denies fever EYES: Denies blurry vision ENT: Denies nasal congestion C/V: Denies Chest pain RESP: Denies shortness of breath GI: Endorses abdominal pain : Denies dysuria SKIN: Denies rash. MSK: Denies joint pain. NEURO: Denies headache ROS Other: All systems not noted in ROS Statement are negative. 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 HEAD: Normal with no signs of head trauma. EYES: PERRLA, EOMI, conjunctiva normal, no discharge. ENT: Hearing grossly intact, normal oropharynx. RESPIRATORY: Clear breath sounds bilaterally. No wheezes, rales, or rhonchi. C/V: Regular rate and rhythm. S1 and S2 auscultated, no edema, peripheral pulses 2+ and intact throughout ABD: Abdomen soft, nondistended. Tender to palpation in the epigastric region. Also has right upper quadrant tenderness to palpation. No guarding or rebound tenderness. No peritoneal signs. EXT: Normal range of motion, no obvious deformity SKIN: No rashes or lesions observed on exposed skin. NEURO: Alert and oriented x 4. Limitations: no limitations Course Vital Signs 02/15/24 02/15/24 02/15/24 21:08 21:59 23:55 Temperature 98.1 F 97.9 F Pulse Rate 88 67 74 Respiratory 20 18 16 Rate Blood Pressure 134/81 132/97 O2 Sat by Pulse 97 97 98 Oximetry Medical Decision Making - Medical Decision Making Was pt. sent in by a medical professional or institution (, PA, PLASTIC ROLLER, urgent care, hospital, or senior living...) When possible be specific @ -No Did you speak to anyone other than the patient for history (EMS, parent, family, police, friend...)? What history was obtained from this source @ -No Did you review nursing and triage notes (agree or disagree)? Why? @ -I reviewed and agree with nursing and triage notes Were old charts reviewed (outside hosp., previous admission, EMS record, old EKG, old radiological studies, urgent care reports/EKG's, senior living records)? Report findings @ -No old charts were reviewed Differential Diagnosis (chest pain, altered mental status, abdominal pain women, abdominal pain men, vaginal bleeding, weakness, fever, dyspnea, syncope, head ache, dizziness, GI bleed, back pain, seizure, CVA, palpatations, mental health, musculoskeletal)? @ -Differential Abdominal Pain Women: Appendicitis, Cholecystitis, diverticulosis, ischemic bowel, pancreatitis, hepatitis, UTI, gastroenteritis, AAA, incarcerated hernia, bowel obstruction, constipation, inflammatory bowel, hepatitis, peptic ulcer disease, splenic infarction, perforated viscus, vulvitis, ovarian torsion, PID, kidney stone, placenta abruption, this is not meant to be an all-inclusive list EKG interpreted by me (3pts min.). @ -As above X-rays interpreted by me (1pt min.). @ -Chest x-ray reveals no obvious acute cardiopulmonary process. CT interpreted by me (1pt min.). @ -None none U/S interpreted by me (1pt. min.). @ -Gallbladder ultrasound reveals small gallstones without any evidence of cholecystitis. What testing was considered but not performed or refused? (CT, X-rays, U/S, labs)? Why? @ -None What meds were considered but not given or refused? Why? @ -None Did you discuss the management of the patient with other professionals (professionals i.e. , PA, PLASTIC ROLLER, lab, RT, psych nurse, outreach and education social worker, occupational medicine physician, teacher, parcel post officer, transplant case manager)? Give summary @ -No Was smoking cessation discussed for >3mins.? @ -No Was critical care preformed (if so, how long)? @ -No Were there social determinants of health that impacted care today? How? (Homelessness, low income, unemployed, alcoholism, drug addiction, transportation, low edu. Level, literacy, decrease access to med. care, detention, rehab)? @ -No Was there de-escalation of care discussed even if they declined (Discuss DNR or withdrawal of care, Hospice)? DNR status @ -No What co-morbidities impacted this encounter? (DM, HTN, Smoking, COPD, CAD, Cancer, CVA, ARF, Chemo, Hep., AIDS, mental health diagnosis, sleep apnea, morbid obesity)? @ -None Was patient admitted / discharged? Hospital course, mention meds given and route, prescriptions, significant lab abnormalities, going to OR and other pertinent info. @ -Patient presents with abdominal pain as well as what is likely upper abdominal pain and lower chest pain. We will obtain abdominal workup including gallbladder ultrasound, screening chest x-ray and EKG as well as lab please. Patient with symptomatic treatment IV fluids, Zofran, Toradol, Pepcid. We did discuss medication choices as she is currently breast-feeding. She does consent to these medications that are provided. Patient's laboratory studies are all within acceptable limits. This includes cardiac screening with an undetectable troponin. EKG showed no signs of acute ischemia. Chest x-ray unremarkable. We did obtain a gallbladder ultrasound which showed stones and sludge but no evidence of cholecystitis. On reevaluation, patient never received medications as her symptoms resolved on their own. She is feeling well. We discussed her workup. Diagnosis biliary colic. She expressed understanding. We discussed proper diet. I will provide her with follow-up information for a surgeon. Recommended follow-up with PCP in the next 1 to 3 days and return if worsening symptoms. We did discuss possibility of obtaining CT imaging however as she is asymptomatic at this time, we both agreed to defer at this time. She was in agreement this plan. All ques tions answered. I instructed the patient to follow up with their PCP in the next 1-3 days. I explained that the patient should return to the emergency department if they experience any worsening symptoms. Strict return precautions were discussed with the patient. The patient expressed understanding of these instructions. I answered all questions that the patient had. The patient was discharged home in good condition with their prescriptions and follow up information. Undiagnosed new problem with uncertain prognosis? @ -No Drug Therapy requiring intensive monitoring for toxicity (Heparin, Nitro, Insulin, Cardizem)? @ -No Were any procedures done? @ -No Diagnosis/symptom? @ -Biliary colic Acute, or Chronic, or Acute on Chronic? @ -Acute on chronic Uncomplicated (without systemic symptoms) or Complicated (systemic symptoms)? @ -Complicated Side effects of treatment? @ -None Exacerbation, Progression, or Severe Exacerbation] @ -No Poses a threat to life or bodily function? @ -Unlikely at this time - Lab Data Result diagrams: 02/15/24 21:54 02/15/24 21:54 Lab Results 02/15/24 02/15/24 02/15/24 Range/Units 21:54 21:54 21:54 WBC 10.6 (3.8-10.6) k/uL RBC 4.80 (3.80-5.40) m/uL Hgb 13.9 (11.4-16.0) gm/dL Hct 42.5 (34.0-46.0) % MCV 88.6 (80.0-100.0) fL MCH 29.0 (25.0-35.0) pg MCHC 32.7 (31.0-37.0) g/dL RDW 13.1 (11.5-15.5) % Plt Count 289 (150-450) k/uL MPV 8.4 Neutrophils % 80 % Lymphocytes % 15 % Monocytes % 4 % Eosinophils % 0 % Basophils % 0 % Neutrophils # 8.4 H (1.3-7.7) k/uL Lymphocytes # 1.5 (1.0-4.8) k/uL Monocytes # 0.5 (0-1.0) k/uL Eosinophils # 0.0 (0-0.7) k/uL Basophils # 0.0 (0-0.2) k/uL PT 10.4 (10.0-12.5) sec INR 0.9 (<1.2) APTT 26.1 (22.0-30.0) sec Sodium (137-145) mmol/L Potassium (3.5-5.1) mmol/L Chloride (98-107) mmol/L Carbon Dioxide (22-30) mmol/L Anion Gap mmol/L BUN (7-17) mg/dL Creatinine (0.52-1.04) mg/dL Est GFR (CKD-EPI)AfAm (>60 ml/min/1.73 sqM) Est GFR (CKD-EPI)NonAf (>60 ml/min/1.73 sqM) Glucose (74-99) mg/dL Plasma Lactic Acid Benjie (0.7-2.0) mmol/L Calcium (8.4-10.2) mg/dL Total Bilirubin (0.2-1.3) mg/dL AST (14-36) U/L ALT (4-34) U/L Alkaline Phosphatase (38-126) U/L Troponin I (0.000-0.034) ng/mL Total Protein (6.3-8.2) g/dL Albumin (3.5-5.0) g/dL Amylase (30-110) U/L Lipase (23-300) U/L Urine Color Colorless Urine Appearance Clear (Clear) Urine pH 6.5 (5.0-8.0) Ur Specific [place] 1.014 (1.001-1.035) Urine Protein Negative (Negative) Urine Glucose (UA) Negative (Negative) Urine Ketones Negative (Negative) Urine Blood Negative (Negative) Urine Nitrite Negative (Negative) Urine Bilirubin Negative (Negative) Urine Urobilinogen <2.0 (<2.0) mg/dL Ur Leukocyte Esterase Negative (Negative) Urine HCG, Qual (Not Detectd) 02/15/24 02/15/24 02/15/24 Range/Units 21:54 21:54 21:54 WBC (3.8-10.6) k/uL RBC (3.80-5.40) m/uL Hgb (11.4-16.0) gm/dL Hct (34.0-46.0) % MCV (80.0-100.0) fL MCH (25.0-35.0) pg MCHC (31.0-37.0) g/dL RDW (11.5-15.5) % Plt Count (150-450) k/uL MPV Neutrophils % % Lymphocytes % % Monocytes % % Eosinophils % % Basophils % % Neutrophils # (1.3-7.7) k/uL Lymphocytes # (1.0-4.8) k/uL Monocytes # (0-1.0) k/uL Eosinophils # (0-0.7) k/uL Basophils # (0-0.2) k/uL PT (10.0-12.5) sec INR (<1.2) APTT (22.0-30.0) sec Sodium 140 (137-145) mmol/L Potassium 4.2 (3.5-5.1) mmol/L Chloride 111 H (98-107) mmol/L Carbon Dioxide 19 L (22-30) mmol/L Anion Gap 10 mmol/L BUN 8 (7-17) mg/dL Creatinine 0.63 (0.52-1.04) mg/dL Est GFR (CKD-EPI)AfAm >90 (>60 ml/min/1.73 sqM) Est GFR (CKD-EPI)NonAf >90 (>60 ml/min/1.73 sqM) Glucose 95 (74-99) mg/dL Plasma Lactic Acid Benjie 1.3 (0.7-2.0) mmol/L Calcium 9.5 (8.4-10.2) mg/dL Total Bilirubin 0.5 (0.2-1.3) mg/dL AST 47 H (14-36) U/L ALT 25 (4-34) U/L Alkaline Phosphatase 112 (38-126) U/L Troponin I (0.000-0.034) ng/mL Total Protein 7.6 (6.3-8.2) g/dL Albumin 4.8 (3.5-5.0) g/dL Amylase 64 (30-110) U/L Lipase 105 (23-300) U/L Urine Color Urine Appearance (Clear) Urine pH (5.0-8.0) Ur Specific [place] (1.001-1.035) Urine Protein (Negative) Urine Glucose (UA) (Negative) Urine Ketones (Negative) Urine Blood (Negative) Urine Nitrite (Negative) Urine Bilirubin (Negative) Urine Urobilinogen (<2.0) mg/dL Ur Leukocyte Esterase (Negative) Urine HCG, Qual Not Detected (Not Detectd) 02/15/24 Range/Units 21:54 WBC (3.8-10.6) k/uL RBC (3.80-5.40) m/uL Hgb (11.4-16.0) gm/dL Hct (34.0-46.0) % MCV (80.0-100.0) fL MCH (25.0-35.0) pg MCHC (31.0-37.0) g/dL RDW (11.5-15.5) % Plt Count (150-450) k/uL MPV Neutrophils % % Lymphocytes % % Monocytes % % Eosinophils % % Basophils % % Neutrophils # (1.3-7.7) k/uL Lymphocytes # (1.0-4.8) k/uL Monocytes # (0-1.0) k/uL Eosinophils # (0-0.7) k/uL Basophils # (0-0.2) k/uL PT (10.0-12.5) sec INR (<1.2) APTT (22.0-30.0) sec Sodium (137-145) mmol/L Potassium (3.5-5.1) mmol/L Chloride (98-107) mmol/L Carbon Dioxide (22-30) mmol/L Anion Gap mmol/L BUN (7-17) mg/dL Creatinine (0.52-1.04) mg/dL Est GFR (CKD-EPI)AfAm (>60 ml/min/1.73 sqM) Est GFR (CKD-EPI)NonAf (>60 ml/min/1.73 sqM) Glucose (74-99) mg/dL Plasma Lactic Acid Benjie (0.7-2.0) mmol/L Calcium (8.4-10.2) mg/dL Total Bilirubin (0.2-1.3) mg/dL AST (14-36) U/L ALT (4-34) U/L Alkaline Phosphatase (38-126) U/L Troponin I <0.012 (0.000-0.034) ng/mL Total Protein (6.3-8.2) g/dL Albumin (3.5-5.0) g/dL Amylase (30-110) U/L Lipase (23-300) U/L Urine Color Urine Appearance (Clear) Urine pH (5.0-8.0) Ur Specific [place] (1.001-1.035) Urine Protein (Negative) Urine Glucose (UA) (Negative) Urine Ketones (Negative) Urine Blood (Negative) Urine Nitrite (Negative) Urine Bilirubin (Negative) Urine Urobilinogen (<2.0) mg/dL Ur Leukocyte Esterase (Negative) Urine HCG, Qual (Not Detectd) - EKG Data -: EKG Interpreted by Me EKG Comments: 12-lead Electrocardiogram Interpretation Note EKG was reviewed and interpreted by myself. 12-lead ECG performed at 2150 is interpreted by me as revealing normal sinus rhythm at a rate of 63 beats per minute. [place] is normal. MO interval is 148 ms, QRS duration is 99 ms, QTc is 433 ms.. There were no ST or T wave abnormalities to suggest myocardial ischemi a or injury. R wave progression across the precordium was satisfactory. By my interpretation this EKG is non-diagnostic for acute ischemia. Disposition Clinical Impression: Biliary colic Disposition: HOME SELF-CARE Condition: Good Instructions (If sedation given, give patient instructions): Biliary Colic (ED) Additional Instructions: Follow-up with your PCP in the next 1 to 3 days. Follow-up with surgeon if you continue to have these symptoms as you may be require gallbladder removal. Avoid fried fatty foods as this increases likelihood of symptom onset. Is patient prescribed a controlled substance at d/c from ED?: No Referrals: Quyen Durham DO [Primary Care Provider] - 1-2 days Grzegorz Dasilva DO [Doctor of Osteopathic Medicine] - 1-2 days Time of Disposition: 23:21
--- NOTE | 2024-02-15 22:04 | XR ---
EXAMINATION TYPE: XR chest 1V portable DATE OF EXAM: 02/15/2024 9:57 PM COMPARISON: Chest radiographs from 04/22/2023 CLINICAL INDICATION: Female, 28 years old with history of epigastric abd pain; [facility] TECHNIQUE: XR chest 1V portable Frontal view of the chest. FINDINGS: Lungs/Pleura: There is no evidence of pleural effusion, focal consolidation, or pneumothorax. Pulmonary vascularity: Unremarkable. Heart/mediastinum: Cardiomediastinal silhouette is unremarkable. Musculoskeletal: No acute osseous pathology. IMPRESSION: No acute cardiopulmonary disease/process. [facility], , 02/15/2024 10:02 PM
[2024-02-15 22:26] LABS: Appearance,Urine Clear (Clear); Bilirubin,Urine Negative (Negative); Blood,Urine Negative (Negative); Color,Urine Colorless; Glucose,Urine (UA) Negative (Negative); Ketones,Urine Negative (Negative); Leukocyte Esterase,Urine Negative (Negative); Nitrite,Urine Negative (Negative); PH, Urine 6.5 (5.0-8.0); Protein,Urine Negative (Negative); Specific Gravity,Urine 1.014 (1.001-1.035); Urobilinogen,Urine <2.0 mg/dL (<2.0)
[2024-02-15 22:29] LABS: Basophils % (A) 0 %; Eosinophils % (A) 0 %; HCT 42.5 % (34.0-46.0); HGB 13.9 gm/dL (11.4-16.0); Lymphocytes # (A) 1.5 k/uL (1.0-4.8); Lymphocytes % (A) 15 %; MCHC 32.7 g/dL (31.0-37.0); MCV 88.6 fL (80.0-100.0); Mean Platelet Volume 8.4; Monocytes # (A) 0.5 k/uL (0-1.0); Monocytes % (A) 4 %; Neutrophils # (A) 8.4 k/uL (1.3-7.7); Neutrophils % (A) 80 %; Platelet Count 289 k/uL (150-450); RDW 13.1 % (11.5-15.5); WBC 10.6 k/uL (3.8-10.6)
[2024-02-15 22:31] LABS: INR 0.9 (<1.2); Partial Thromboplastin Time 26.1 sec (22.0-30.0); Prothrombin Time 10.4 sec (10.0-12.5)
[2024-02-15 22:32] LABS: ALT 25 U/L (4-34); AST 47 U/L (14-36); African American GFR (CKD) >90 (>60 ml/min/1.73 sqM); Albumin 4.8 g/dL (3.5-5.0); Alkaline Phosphatase 112 U/L (38-126); Amylase 64 U/L (30-110); Anion Gap 10 mmol/L; Blood Urea Nitrogen 8 mg/dL (7-17); Calcium 9.5 mg/dL (8.4-10.2); Carbon Dioxide 19 mmol/L (22-30); Chloride 111 mmol/L (98-107); Glucose 95 mg/dL (74-99); Lipase 105 U/L (23-300); Non-African American GFR(CKD) >90 (>60 ml/min/1.73 sqM); Potassium 4.2 mmol/L (3.5-5.1); Sodium 140 mmol/L (137-145); Total Bilirubin 0.5 mg/dL (0.2-1.3); Total Protein 7.6 g/dL (6.3-8.2)
[2024-02-15] MEDS: SODIUM CHLORIDE 0.9% 1,000 ML IV STA (22:40)
--- NOTE | 2024-02-15 22:55 | US ---
EXAMINATION TYPE: US gallbladder DATE OF EXAM: 02/15/2024 COMPARISON: NONE CLINICAL INDICATION: Female, 28 years old with history of ruq abd pain; RUQ pain TECHNIQUE: Grayscale and color Doppler imaging of the right upper quadrant was performed. FINDINGS: EXAM MEASUREMENTS: Liver Length: 18.5 cm Gallbladder Wall: 0.1 cm CBD: 0.3 cm Right Kidney: 10.1x4.0x4.3 cm REVOLVING INVENTORY CLERK NOTES: Pancreas: Tail obscured by overlying bowel gas Liver: echogenic and enlarged Gallbladder: ?hydropic? gravel like stones Evidence for sonographic [place]'s sign: No CBD: wnl Right Kidney: wnl exam limited by patient pain, habitus, an bowel gas Heterogeneous hyperechoic appearance of the liver. Evaluation for focal masses suboptimal due to the heterogeneity. IMPRESSION: Suboptimal study. Small gallstones and/or gallbladder sludge without secondary ultrasound evidence fo r acute cholecystitis. Probable diffuse fatty infiltration of liver is noted. [facility], , 02/15/2024 10:52 PM
[2024-02-16] MEDS: KETOROLAC 15 MG/ML 1 ML VIAL IVP STA (00:09)
[2024-02-16] MEDS: ONDANSETRON 4 MG/2 ML VIAL IVP STA (00:09)
[2024-02-16] MEDS: FAMOTIDINE 20 MG/2 ML VIAL IV STA (00:10)
[2024-02-16 00:11] VITALS: BP 132/97; PULSE 74; RESP 16; TEMP 97.9
== END 2024-02-15 23:55 | disposition home or self-care (01) ==
LOC: EC 21:06
DX: K80.50 Calculus of bile duct without cholangitis or cholecystitis without obstruction (principal)
CPT/HCPCS: 36415; 71045; 76705; 80053; 81003; 81025; 82150; 83605; 83690; 84484; 85025; 85610; 85730; 93005; 96360; 99284

== ENCOUNTER 2024-07-12 16:15 | Emergency (ER) | payer OTHER ==
--- NOTE | 2024-07-12 16:40 | ED ---
Abdominal Pain HPI - General Chief Complaint: Abdominal Pain Stated Complaint: abd pain/chest pain Time Seen by Provider: 07/12/24 16:26 Source: patient, RN notes reviewed Mode of arrival: ambulatory Limitations: no limitations - History of Present Illness Initial Comments: This is a 28-year-old female with history of gallstones presenting to the emergency department for complaints of right upper quadrant abdominal pain that has been intermittent over the past 3 days. Patient states that she will experience right upper quadrant abdominal pain intermittently that most commonly occurs at night described as a stabbing and burning sensation that will last upwards of 12 hours. She states that the pain will radiate up into her chest and into her back with associated nausea and vomiting. States that her urine has been darker in color and she has been experiencing associated diarrhea. Denies difficulty in breathing, fevers, chills, dysuria or increased urinary frequency or urgency. Denies previous surgical abdominal history. She is scheduled for an appointment with general surgeon on the of this month. - Related Data Home Medications Medication Instructions Recorded Confirmed Aspirin 81 mg PO DAILY 06/17/23 06/17/23 Vit No.179/Iron/Folic 1 tab PO DAILY 06/17/23 06/17/23 [ Tablet] Allergies Allergy/AdvReac Type Severity Reaction Status Date / Time No Known Allergies Allergy Verified 07/12/24 16:25 Review of Systems ROS Statement: Those systems with pertinent positive or pertinent negative responses have been documented in the HPI. ROS Other: All systems not noted in ROS Statement are negative. 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 Absent: tenderness, meningismus, lymphadenopathy Respiratory exam: Present: normal lung sounds bilaterally. Absent: respiratory distress, wheezes, rales, rhonchi, stridor Cardiovascular Exam: Present: regular rate, normal rhythm, normal heart sounds. Absent: systolic murmur, diastolic murmur, rubs, gallop, clicks GI/Abdominal exam: Present: soft, tenderness (RUQ), normal bowel sounds. Absent: distended, guarding, rebound, rigid Extremities exam: Present: normal inspection, full ROM, normal capillary refill. Absent: tenderness, pedal edema, joint swelling, calf tenderness Back exam: Present: normal inspection. Absent: CVA tenderness (R), CVA tenderness (L) Skin exam: Present: warm, dry, intact, normal color. Absent: rash Course Vital Signs 07/12/24 07/12/24 16:22 20:00 Temperature 97.8 F 97.9 F Pulse Rate 65 57 L Respiratory 17 18 Rate Blood Pressure 113/75 122/82 O2 Sat by Pulse 99 99 Oximetry Medical Decision Making - Medical Decision Making Was pt. sent in by a medical professional or institution (, PA, [employer], urgent care, hospital, or [facility]...) When possible be specific @ -No Did you speak to anyone other than the patient for history (EMS, parent, family, police, friend...)? What history was obtained from this source @ -No Did you review nursing and triage notes (agree or disagree)? Why? @ -I reviewed and agree with nursing and triage notes Were old charts reviewed (outside hosp., previous admission, EMS record, old EKG, old radiological studies, urgent care reports/EKG's, [facility] records)? Report findings @ -No old charts were reviewed Differential Diagnosis (chest pain, altered mental status, abdominal pain women, abdominal pain men, vaginal bleeding, weakness, fever, dyspnea, syncope, headache, dizziness, GI bleed, back pain, seizure, CVA, palpatations, mental health, musculoskeletal)? @ -Differential Abdominal Pain Women: Appendicitis, Cholecystitis, diverticulosis, ischemic bowel, pancreatitis, hepa titis, UTI, gastroenteritis, AAA, incarcerated hernia, bowel obstruction, constipation, inflammatory bowel, hepatitis, peptic ulcer disease, splenic infarction, perforated viscus, vulvitis, ovarian torsion, PID, kidney stone, placenta abruption, this is not meant to be an all-inclusive list EKG interpreted by me (3pts min.). @ -None X-rays interpreted by me (1pt min.). @ -None done CT interpreted by me (1pt min.). @ -None done U/S interpreted by me (1pt. min.). @ -Gallbladder ultrasound completed revealing no evidence for acute process, cholelithiasis and hepatic steatosis, subjective increase amount of stones from previous ultrasound imaging and positive sonographic Coburn sign What testing was considered but not performed or refused? (CT, X-rays, U/S, labs)? Why? @ -None What meds were considered but not given or refused? Why? @ -None Did you discuss the management of the patient with other professionals (professionals i.e. DrClarke, PA, [employer], lab, RT, psych nurse, social problems specialist, electrical laboratory technician, teacher, nuclear medicine officer, outpatient case manager)? Give summary @ -I spoke with general surgeons, Dr. Barragan and Dr. Lemon, who have both recommended transfer to facility GI coverage. Spoke with [facility] open was declined transfer. Spoke with Dr. Lal ED physician at [facility] who has accepted the patient for transfer. Was smoking cessation discussed for >3mins.? @ -No Was critical care preformed (if so, how long)? @ -No Were there social determinants of health that impacted care today? How? (Homelessness, low income, unemployed, alcoholism, drug addiction, transportation, low edu. Level, literacy, decrease access to med. care, custodial, rehab)? @ -No Was there de-escalation of care discussed even if they declined (Discuss DNR or withdrawal of care, Hospice)? DNR status @ -No What co-morbidities impacted this encounter? (DM, HTN, Smoking, COPD, CAD, Cancer, CVA, ARF, Chemo, Hep., AIDS, mental health diagnosis, sleep apnea, morbid obesity)? @ -None Was patient admitted / discharged? Hospital course, mention meds given and route, prescriptions, significant lab abnormalities, going to OR and other pertinent info. @ -Transferred. 28-year-old female presents emergency room with complaints of intermittent right upper quadrant pain. Patient's initial vitals are stable. Abdominal examination reveals a positive Coburn sign. Patient was offered pain medication however was declined. Laboratory testing remarkable for transaminiti s with a AST of 323, ALT of 478, alkaline phosphatase of 239 and elevated bilirubin of 2.7. Lipase within normal. hCG is negative. Ultrasound reveals no evidence for acute process. I did touch base with general surgeon, Dr. Barragan and Dr. Lemon, both full recommended transfer to facility with GI coverage. I spoke with [facility] transfer GI specialist who has not accepted the patient for transfer as there is no definitive gallstone within the common bile duct. I spoke with Dr. Lal, ER physician, at [facility] who has accepted the patient for transfer for further evaluation. This case been discussed with my ED attending, Dr. Benjamin. Patient will be transferred via EMS to [facility]. Undiagnosed new problem with uncertain prognosis? @ -No Drug Therapy requiring intensive monitoring for toxicity (Heparin, Nitro, Insulin, Cardizem)? @ -No Were any procedures done? @ -No Diagnosis/symptom? @ -Transaminitis, abdominal pain, rule out choledocholithiasis Acute, or Chronic, or Acute on Chronic? @ -Acute Uncomplicated (without systemic symptoms) or Complicated (systemic symptoms)? @ -Complicated Side effects of treatment? @ -No Exacerbation, Progression, or Severe Exacerbation? @ -No Poses a threat to life or bodily function? How? (Chest pain, USA, LA, pneumonia, PE, COPD, DKA, ARF, appy, cholecystitis, CVA, Diverticulitis, Homicidal, Suicida l, threat to staff... and all critical care pts) @ -No - Lab Data Result diagrams: 07/12/24 16:48 07/12/24 16:48 Lab Results 07/12/24 07/12/24 07/12/24 Range/Units 16:48 16:48 16:48 WBC 6.03 (4.50-10.00) 10*3/uL RBC 4.56 (4.10-5.20) 10*6/uL Hgb 13.2 (12.0-15.0) g/dL Hct 39.9 (37.2-46.3) % MCV 87.5 (80.0-97.0) fL MCH 28.9 (27.0-32.0) pg MCHC 33.1 (32.0-37.0) g/dL Plt Count 314 (140-440) 10*3/uL MPV 10.2 (9.5-12.2) fL Immature Gran % (Auto) 0.2 % Neutrophils % 62.4 % Lymphocytes % 28.7 % Monocytes % 6.3 % Eosinophils % 1.7 % Basophils % 0.7 % Immature Gran # 0.01 (0.00-0.04) 10*3/uL Neutrophils # 3.77 (1.80-7.70) 10*3/uL Lymphocytes # 1.73 (0.90-5.00) 10*3/uL Monocytes # 0.38 (0.20-1.00) 10*3/uL Eosinophils # 0.10 (0.04-0.35) 10*3/uL Basophils # 0.04 (0.00-0.10) 10*3/uL Sodium 140 (137-145) mmol/L Potassium 4.0 (3.5-5.1) mmol/L Chloride 105 (98-107) mmol/L Carbon Dioxide 28 (22-30) mmol/L Anion Gap 7 mmol/L BUN 8 (7-17) mg/dL Creatinine 0.54 (0.52-1.04) mg/dL Est GFR (CKD-EPI)AfAm >90 (>60 ml/min/1.73 sqM) Est GFR (CKD-EPI)NonAf >90 (>60 ml/min/1.73 sqM) Glucose 96 (74-99) mg/dL Plasma Lactic Acid Benjie 0.7 (0.7-2.0) mmol/L Calcium 9.3 (8.4-10.2) mg/dL Total Bilirubin 2.7 H (0.2-1.3) mg/dL AST 323 H (14-36) U/L ALT 478 H (4-34) U/L Alkaline Phosphatase 239 H (38-126) U/L Total Protein 7.3 (6.3-8.2) g/dL Albumin 4.3 (3.5-5.0) g/dL Lipase 91 (23-300) U/L Urine Color Urine Appearance (Clear) Urine pH (5.0-8.0) Ur Specific [place] (1.001-1.035) Urine Protein (Negative) Urine Glucose (UA) (Negative) Urine Ketones (Negative) Urine Blood (Negative) Urine Nitrite (Negative) Urine Bilirubin (Negative) Urine Urobilinogen (<2.0) mg/dL Ur Leukocyte Esterase (Negative) Urine RBC (0-5) /hpf Urine WBC (0-5) /hpf Ur Squamous Epith Cells (0-4) /hpf Urine Bacteria (None) /hpf Urine HCG, Qual (Not Detectd) 07/12/24 07/12/24 Range/Units 18:07 18:07 WBC (4.50-10.00) 10*3/uL RBC (4.10-5.20) 10*6/uL Hgb (12.0-15.0) g/dL Hct (37.2-46.3) % MCV (80.0-97.0) fL MCH (27.0-32.0) pg MCHC (32.0-37.0) g/dL Plt Count (140-440) 10*3/uL MPV (9.5-12.2) fL Immature Gran % (Auto) % Neutrophils % % Lymphocytes % % Monocytes % % Eosinophils % % Basophils % % Immature Gran # (0.00-0.04) 10*3/uL Neutrophils # (1.80-7.70) 10*3/uL Lymphocytes # (0.90-5.00) 10*3/uL Monocytes # (0.20-1.00) 10*3/uL Eosinophils # (0.04-0.35) 10*3/uL Basophils # (0.00-0.10) 10*3/uL Sodium (137-145) mmol/L Potassium (3.5-5.1) mmol/L Chloride (98-107) mmol/L Carbon Dioxide (22-30) mmol/L Anion Gap mmol/L BUN (7-17) mg/dL Creatinine (0.52-1.04) mg/dL Est GFR (CKD-EPI)AfAm (>60 ml/min/1.73 sqM) Est GFR (CKD-EPI)NonAf (>60 ml/min/1.73 sqM) Glucose (74-99) mg/dL Plasma Lactic Acid Benjie (0.7-2.0) mmol/L Calcium (8.4-10.2) mg/dL Total Bilirubin (0.2-1.3) mg/dL AST (14-36) U/L ALT (4-34) U/L Alkaline Phosphatase (38-126) U/L Total Protein (6.3-8.2) g/dL Albumin (3.5-5.0) g/dL Lipase (23-300) U/L Urine Color Light Yellow Urine Appearance Clear (Clear) Urine pH 6.5 (5.0-8.0) Ur Specific [place] 1.004 (1.001-1.035) Urine Protein Negative (Negative) Urine Glucose (UA) Negative (Negative) Urine Ketones Negative (Negative) Urine Blood Negative (Negative) Urine Nitrite Negative (Negative) Urine Bilirubin Negative (Negative) Urine Urobilinogen <2.0 (<2.0) mg/dL Ur Leukocyte Esterase Small H (Negative) Urine RBC 1 (0-5) /hpf Urine WBC 4 (0-5) /hpf Ur Squamous Epith Cells 1 (0-4) /hpf Urine Bacteria Many H (None) /hpf Urine HCG, Qual Not Detected (Not Detectd) Disposition Clinical Impression: Cholelithiasis, Biliary colic Disposition: OTHER INSTITUTION NOT DEFINED Condition: Stable Additional Instructions: Please return to the Emergency Department if symptoms worsen or any other concerns. Time of Disposition: 19:15 - Out of Hospital Transfer - Req. Specs Out of Hospital Transfer - Requested Specifics: Other Emergency Center ([facility])
[2024-07-12 17:00] LABS: Basophils # (A) 0.04 10*3/uL (0.00-0.10); Basophils % (A) 0.7 %; Eosinophils % (A) 1.7 %; HCT 39.9 % (37.2-46.3); HGB 13.2 g/dL (12.0-15.0); Lymphocytes # (A) 1.73 10*3/uL (0.90-5.00); Lymphocytes % (A) 28.7 %; MCH 28.9 pg (27.0-32.0); MCHC 33.1 g/dL (32.0-37.0); MCV 87.5 fL (80.0-97.0); Mean Platelet Volume 10.2 fL (9.5-12.2); Monocytes # (A) 0.38 10*3/uL (0.20-1.00); Monocytes % (A) 6.3 %; Neutrophils # (A) 3.77 10*3/uL (1.80-7.70); Neutrophils % (A) 62.4 %; Platelet Count 314 10*3/uL (140-440); RBC 4.56 10*6/uL (4.10-5.20); RDW 12.9 % (11.5-14.5); WBC 6.03 10*3/uL (4.50-10.00)
[2024-07-12 17:07] LABS: ALT 478 U/L (4-34); AST 323 U/L (14-36); African American GFR (CKD) >90 (>60 ml/min/1.73 sqM); Albumin 4.3 g/dL (3.5-5.0); Alkaline Phosphatase 239 U/L (38-126); Anion Gap 7 mmol/L; Blood Urea Nitrogen 8 mg/dL (7-17); Calcium 9.3 mg/dL (8.4-10.2); Carbon Dioxide 28 mmol/L (22-30); Chloride 105 mmol/L (98-107); Glucose 96 mg/dL (74-99); Lipase 91 U/L (23-300); Non-African American GFR(CKD) >90 (>60 ml/min/1.73 sqM); Sodium 140 mmol/L (137-145); Total Bilirubin 2.7 mg/dL (0.2-1.3); Total Protein 7.3 g/dL (6.3-8.2)
--- NOTE | 2024-07-12 17:46 | US ---
EXAMINATION TYPE: US gallbladder DATE OF EXAM: 07/12/2024 COMPARISON: 02/15/2024 CLINICAL INDICATION: Female, 28 years old with history of RUQ ab pain, hx gallstones; RUQ pain increa sing over last few days with nausea and vomiting. TECHNIQUE: Grayscale and color Doppler imaging of the right upper quadrant was performed. FINDINGS: EXAM MEASUREMENTS: Liver Length: 15.0 cm Gallbladder Wall: 0.3 cm CBD: 0.6 cm Right Kidney: 1.07 x 4.4 x 5.9 cm INSULATION WORKER NOTES: Pancreas: Duct seen = 0.3 cm Liver: wnl Gallbladder: Subjective Increase in amount of stones from previous Evidence for sonographic Coburn's sign: Yes CBD: At the upper limits of normal. Right Kidney: wnl IMPRESSION: No evidence for acute process. Cholelithiasis. Hepatic steatosis. [facility], , 07/12/2024 5:44 PM
[2024-07-12 18:25] LABS: Appearance,Urine Clear (Clear); Bacteria,Urine Many /hpf; Bilirubin,Urine Negative (Negative); Blood,Urine Negative (Negative); Color,Urine Light Yellow; Glucose,Urine (UA) Negative (Negative); Ketones,Urine Negative (Negative); Leukocyte Esterase,Urine Small (Negative); Nitrite,Urine Negative (Negative); PH, Urine 6.5 (5.0-8.0); Protein,Urine Negative (Negative); RBC,Urine 1 /hpf (0-5); Specific Gravity,Urine 1.004 (1.001-1.035); Squamous Epithelial Cell,Urine 1 /hpf (0-4); Urobilinogen,Urine <2.0 mg/dL (<2.0); WBC,Urine 4 /hpf (0-5)
[2024-07-12] MEDS: ACET/COD 300 MG/30 MG STARTER PACK 6 TAB BTL PO STA (19:52)
[2024-07-12 21:18] VITALS: RESP 18
[2024-07-12 21:55] VITALS: BP 125/86; PULSE 66; TEMP 97.1
== END 2024-07-12 21:58 | disposition other institution (70) ==
LOC: EC 16:15
DX: K80.70 Calculus of gallbladder and bile duct without cholecystitis without obstruction (principal)
CPT/HCPCS: 36415; 76705; 80053; 81001; 81025; 83605; 83690; 85025; 99285